=== PATIENT | male | born 1970 | race Caucasian/White ===

== ENCOUNTER 2016-04-24 05:55 | Emergency (ER) | payer SELFPAY ==
--- NOTE | ~2016-04-24 | CR173 ---
[facility] A Service of [facility] / [facility] RADIOLOGY TEXT RESULTS PATIENT: LORRI DANG LOCATION: [facility] : 66 UNIT #: [id number] AGE: [address]: Mukund Bishop MD SEX: M ORDER DR: [id number] [facility] [address] [place], [place] [address] [id number] E MR#: [id number] Acc #: [id number] NAME: LORRI DANG : 1970 SEX: M STUDY DATE/TIME: 04/24/2016 6:12 UNIT: [facility] ROOM: STUDY DESCRIPTION: CR Knee 3 Views Rt Attending Physician: Mukund Bishop M.D. Ordering Physician: Mukund Bishop M.D. Primary Care Physician: No Primary Care Physician MEDICAL IMAGING REPORT This report is preliminary unless electronic signature is present EXAM Right knee. DATE OF EXAM 04/24/2016 HISTORY Right knee pain. Soft tissue swelling for 2 weeks, twisted 2 weeks ago. COMMENT 4 films submitted for a 3 view study of the right knee. There is a large suprapatellar joint effusion. There is mild lateral patellar tracking. There is no acute fracture, dislocation or radiopaque foreign body. IMPRESSION Large suprapatellar joint effusion without evidence for acute fracture, dislocation or radiopaque foreign body. Dictated by... Naila Ba M.D. THIS IS AN ELECTRONICALLY VERIFIED REPORT Naila Ba M.D. at 04/25/2016 6:19 AM YULISSA/cadence TD: 04/24/2016 18:56 JOB #: [id number] MEDICAL IMAGING REPORT COPY
== END 2016-04-24 07:00 | disposition home or self-care (01) ==
LOC: CED 05:55
DX: S83.91XA Sprain of unspecified site of right knee, initial encounter (principal); W19.XXXA Unspecified fall, initial encounter; Y93.89 Activity, other specified; Y92.69 Other specified industrial and construction area as the place of occurrence of the external cause; Y99.0 Civilian activity done for income or pay
CPT/HCPCS: 29505; 73562; 99283